=== PATIENT | male | born 1930 | race Caucasian/White ===

== ENCOUNTER 2017-12-27 14:54 | Inpatient (IN) ==
[2017-12-27] MEDS ORDERED: Acetaminophen 325 MG Tablet PO ONE (20:13)
[2017-12-27] MEDS ORDERED: Sodium Chlor 0.9% Inj 500 ML IV.SIG ONE (20:13)
--- NOTE | 2017-12-27 20:41 | ED ---
HPI General Chief complaint: [employer] Problem Stated complaint: Medical/GI Time Seen by Provider: 12/27/17 20:40 Source: patient History of Present Illness HPI narrative: The patient is an 87 year old male who presents to the [facility] emergency department with a history of swollen scotum that began 4-5 days. He has dysuria with urinary incontinence for the last 3 days. He has had a poor appetite and difficulty sleeping. He last moved his bowels 4-5 days ago. He has weakness of his lower extremities. His pmd: none. According to the patient's son at the bedside the patient does not believe and taking medications or following with a primary care physician. Patient is unsure whether he has had any fevers associated with this at home. He reports having chills. He denies having any significant cough or congestion. He reports having a strong odor to his urine and blood in his urine. On review of systems otherwise, the patient denies having any neck pain, chest pain, shortness of breath, vomiting, diarrhea, or neurologic symptoms. Related Data Allergies Allergy/AdvReac Type Severity Reaction Status Date / Time No Known Allergies Allergy Uncoded 02/18/15 16:30 Review of Systems Constitutional Denies fever(s) and Reports other (chills) Eyes Denies change in vision ENT Denies headache(s) and Denies nasal congestion Cardiovascular Denies chest pain Respiratory Denies dyspnea Gastrointestinal Denies abdominal pain Genitourinary Reports hematuria, Reports difficulty urinating, Reports dysuria, Reports flank pain, Reports nocturia, Reports scrotal swelling, Reports testicular pain, Reports urinary frequency, Reports urinary incontinence and Reports urinary urgency Musculoskeletal Denies myalgias Integumentary/Breasts Denies rash Neurologic Denies headache(s), Denies focal weakness and Reports weakness (generalized weakness) Psychiatric Denies depression Endocrine Denies polyuria Hematologic/Lymphatic Denies easy bruising PMFSH Medical History Medical History BPH (benign prostatic hyperplasia) (Acute) Surgical History Surgical History S/P TURP (Acute) Social History Social History Substance History: No History of Abuse Smoking Status: Never smoker How Often Do You Have a Drink Containing Alcohol: Never Recent Travel in [facility] within the Last 8 Weeks: No Recent Out of Country Travel within the Last 8 Weeks: No Immunization History Tetanus Immunization: Unsure Hx Influenza Vaccine This Season: No Exam HENVA Head: normocephalic and atraumatic Nose: no nasal discharge and no epistaxis Mouth: moist mucous membranes Eyes Sclera: normal sclerae Pupils: PERRL Neck Neck: trachea midline and no JVD Resp Effort & Inspection: no use of accessory muscles Auscultation: clear to auscultation bilaterally Cardio Rate: regular rate Rhythm: regular rhythm Heart Sounds: no murmurs GI Inspection: non-distended Palpation: soft, no hepatosplenomegaly and tender suprapubicly; not at McBurney' s point, Roger's sign negative and with no rebound tenderness Auscultation: normal bowel sounds Penis: normal penis Meatus: meatus normal and no meatla discharge Scrotum: edematous, erythematous and scrotal swelling Testes: testicular tenderness Back/Spine/Pelvis Back: CVA tenderness (bilaterally) Skin General: dry skin (warm) Neuro General: alert, awake and oriented x3 Cranial Nerves: CN's II-XI intact bilaterally Speech: speech normal Motor: no movement abnormalities noted Sensory Exam: no sensory deficits noted Extrem General: normal to inspection, no clubbing, no cyanosis and no edema Psych Mood: congruent mood Affect: normal affect Judgment: judgment good Course Hospital Course: During the course of the patient's emergency department visit, the patient's history, examination, and differential diagnosis were reviewed with the patient. The patient was placed on a manager social with oximetry and frequent blood pressure monitoring. The patient had IV access obtained and blood work sent for analysis. A sepsis workup was initiated. The patient reports having incontinence. The patient reports having hematuria. A Machado catheter will be placed to gravity for a urine sample and to assess for any urine retention as well as any need for irrigation. CT scan of the abdomen and pelvis has been ordered. An ultrasound of the patient's testicles has been ordered. The patient was initially provided normal saline at 500 mL bolus 1, broad- spectrum antibiotic coverage to include Zosyn and vancomycin. The patient was noted to have an elevated temperature at 100. The patient was given Tylenol 650 p.o. 1. Consultations Consultation #1: The patient's case including history, pertinent physical examination findings, and laboratory studies were discussed with Dr Hanson. It was agreed that the patient would be admitted to the hospitalist service. Time: 00:29 Initial Documented Vital Signs Temperature 100.0 F H 12/27/17 15:51 Pulse Rate 114 H 12/27/17 15:51 Respiratory Rate 20 12/27/17 15:51 Blood Pressure 177/90 H 12/27/17 15:51 Pulse Oximetry 97 12/27/17 15:51 Last Documented Vital Signs Temperature 100.0 F H 12/27/17 15:51 Pulse Rate 95 H 12/27/17 20:06 Respiratory Rate 0 L 12/28/17 00:07 Blood Pressure 160/95 H 12/27/17 20:06 Pulse Oximetry 98 12/27/17 20:06 Medical Decision Making MDM Narrative Medical decision making narrative: A workup ensued to evaluate for possible underlying sepsis related to a suspected urinary tract infection. Workup will also be done to evaluate for any underlying scrotal abscess, orchitis, or epididymitis as a complication of urinary tract infection. The patient's diagnostic evaluation is remarkable for a leukocytosis at 24.3 with a left shift at 83 neutrophilsPT 11, INR 1.1, PTT 27.6, hemoglobin is 16.3 , platelets are 285, chemistry is remarkable for a troponin I of 0.19 which I suspect is demand related due to his illness as he denies having any chest pain or shortness of breath, CPK 723. The patient was continued on normal saline IV fluid resuscitation, glucose 118, lipase 58, lactic acid elevated at 2.5, GFR 47 , creatinine 1.42, BUN 24. Urinalysis showed 30 protein moderate occult blood occasional bacteria. Chest x-ray shows displacement of the inferior aspect of the trachea towards the right, left mediastinal process needs to be considered. This could be further evaluated with a CT scan exam of the chest. Plaques are noted that appear to be pleural-based. A CT scan of the chest with contrast was ordered, however CT scan of the abdomen and pelvis with IV contrast had already been done , therefore this will be deferred until tomorrow as an inpatient. CT scan of the abdomen and pelvis shows a right complex hydrocele, calcified pleural plaques on the right side, mild hepatic steatosis, stable cystic change at the uncinate process, renal cyst, fat-containing left inguinal hernia. Ultrasound of the testicles reveals findings consistent with a right sided orchitis, multiple bilateral epidural middle epididymal cysts with a complex 7 mm cyst. Differential includes metastasis, versus leukemia, solid lesions do not typically appear to be abscesses, however after treatment with antibiotic and ultrasound is recommended to repeat to evaluate for improvement. Moderate to large right-sided and small left-sided hydroceles are noted. The patient will be admitted for Orchitis, Dehydration, elevated troponin. The patient's results were discussed with the patient, including the plan of care. I explained that further testing and/ or monitoring is indicated based on the patient's history, examination, and/ or laboratory findings. Therefore, I recommended admission for additional evaluation. The patient expressed understanding and was agreeable with this plan. The patient was admitted to the hospital in guarded condition and sent to a bed under the care of [facility] service. Differential Diagnosis Differential Diagnosis: Scrotal cellulitis, versus Evelyn's gangrene, versus epididymitis, versus orchitis, versus prostatitis Medical Records Medical records reviewed: Yes I reviewed the patient's medical records. Lab Data Lab results reviewed: Yes I reviewed the patient's lab results. Result diagrams: 12/27/17 20:35 12/27/17 20:35 Lab Results 12/27/17 12/27/17 12/27/17 Range/Units 20:35 20:35 20:35 WBC 24.3 H (4.0-11.0) th/mm3 RBC 5.20 (4.50-5.90) mil/mm3 Hgb 16.3 (13.0-17.0) gm/dL Hct 47.0 (39.0-51.0) % MCV 90.5 (80.0-100.0) fL MCH 31.4 (27.0-34.0) pg MCHC 34.7 (32.0-36.0) % RDW 13.6 (11.6-17.2) % Plt Count 285 (150-450) th/mm3 MPV 8.8 (7.0-11.0) fL Neut % (Auto) 83.0 H (16.0-70.0) % Lymph % (Auto) 8.4 L (9.0-44.0) % Stanley % (Auto) 8.4 H (0.0-8.0) % Eos % (Auto) 0.0 (0.0-4.0) % Baso % (Auto) 0.2 (0.0-2.0) % Neut # (Auto) 20.2 H (1.8-7.7) th/mm3 Lymph # (Auto) 2.1 (1.0-4.8) th/mm3 Stanley # (Auto) 2.0 H (0.0-0.9) th/mm3 Eos # (Auto) 0.0 (0.0-0.4) th/mm3 Baso # (Auto) 0.1 (0.0-0.2) th/mm3 WBC Differential . Differential Comment Auto diff final PT 11.0 (9.8-11.6) sec INR 1.1 Ratio APTT 27.6 (24.3-30.1) sec Sodium 137 (136-145) meq/L Potassium 4.0 (3.5-5.1) meq/L Chloride 101 (98-107) meq/L Carbon Dioxide 24.1 (21.0-32.0) meq/L Anion Gap 12 (5-15) meq/L BUN 24 H (7-18) mg/dL Creatinine 1.42 H (0.60-1.30) mg/dL Estimated GFR 47 L (>89) mL/min Random Glucose 118 H (74-106) mg/dL Lactic Acid (0.4-2.0) mmol/L Calcium 9.7 (8.5-10.1) mg/dL Magnesium 2.5 (1.5-2.5) mg/dL Total Bilirubin 2.2 H (0.2-1.0) mg/dL AST 36 (15-37) U/L ALT 17 (12-78) U/L Alkaline Phosphatase 64 (45-117) U/L Total Creatine Kinase 723 H (39-308) U/L CK-MB (CK-2) 2.2 (0.5-3.6) ng/mL CK-MB (CK-2) % 0.3 (0.0-4.0) % Troponin I 0.19 H (0.02-0.05) ng/mL Total Protein 9.1 H (6.4-8.2) g/dL Albumin 3.4 (3.4-5.0) g/dL Lipase 58 L (73-393) U/L Urine Color (Yellw/Straw) Urine Clarity (Clear) Urine pH (5.0-8.5) Ur Specific [place] (1.002-1.035) Urine Protein (Neg-Trace) mg/dL Urine Glucose (UA) (Negative) mg/dL Urine Ketones (Negative) mg/dL Urine Occult Blood (Negative) Urine Nitrate (Negative) Urine Bilirubin (Negative) Urine Urobilinogen (Less than 2) mg/dL Ur Leukocyte Esterase (Negative) Urine RBC (0-3) /hpf Urine WBC (0-5) /hpf Urine Bacteria (None) /hpf Micro UA Comment Urine Culture Comments 12/27/17 12/27/17 Range/Units 20:35 23:20 WBC (4.0-11.0) th/mm3 RBC (4.50-5.90) mil/mm3 Hgb (13.0-17.0) gm/dL Hct (39.0-51.0) % MCV (80.0-100.0) fL MCH (27.0-34.0) pg MCHC (32.0-36.0) % RDW (11.6-17.2) % Plt Count (150-450) th/mm3 MPV (7.0-11.0) fL Neut % (Auto) (16.0-70.0) % Lymph % (Auto) (9.0-44.0) % Stanley % (Auto) (0.0-8.0) % Eos % (Auto) (0.0-4.0) % Baso % (Auto) (0.0-2.0) % Neut # (Auto) (1.8-7.7) th/mm3 Lymph # (Auto) (1.0-4.8) th/mm3 Stanley # (Auto) (0.0-0.9) th/mm3 Eos # (Auto) (0.0-0.4) th/mm3 Baso # (Auto) (0.0-0.2) th/mm3 WBC Differential Differential Comment PT (9.8-11.6) sec INR Ratio APTT (24.3-30.1) sec Sodium (136-145) meq/L Potassium (3.5-5.1) meq/L Chloride (98-107) meq/L Carbon Dioxide (21.0-32.0) meq/L Anion Gap (5-15) meq/L BUN (7-18) mg/dL Creatinine (0.60-1.30) mg/dL Estimated GFR (>89) mL/min Random Glucose (74-106) mg/dL Lactic Acid 2.5 H (0.4-2.0) mmol/L Calcium (8.5-10.1) mg/dL Magnesium (1.5-2.5) mg/dL Total Bilirubin (0.2-1.0) mg/dL AST (15-37) U/L ALT (12-78) U/L Alkaline Phosphatase (45-117) U/L Total Creatine Kinase (39-308) U/L CK-MB (CK-2) (0.5-3.6) ng/mL CK-MB (CK-2) % (0.0-4.0) % Troponin I (0.02-0.05) ng/mL Total Protein (6.4-8.2) g/dL Albumin (3.4-5.0) g/dL Lipase (73-393) U/L Urine Color Yellow (Yellw/Straw) Urine Clarity Clear (Clear) Urine pH 6.0 (5.0-8.5) Ur Specific [place] 1.014 (1.002-1.035) Urine Protein 30 H (Neg-Trace) mg/dL Urine Glucose (UA) Negative (Negative) mg/dL Urine Ketones Negative (Negative) mg/dL Urine Occult Blood Moderate H (Negative) Urine Nitrate Negative (Negative) Urine Bilirubin Negative (Negative) Urine Urobilinogen 4 or greater (Less than 2) mg/dL Ur Leukocyte Esterase Negative (Negative) Urine RBC 1 (0-3) /hpf Urine WBC 2 (0-5) /hpf Urine Bacteria Occasional H (None) /hpf Micro UA Comment Culture not ind Urine Culture Comments Culture not ind Imaging Data Radiologist's impression: ITS Impressions Chest X-Ray 12/27/17 20:13 CONCLUSION: 1. Displacement of the inferior aspect of the trachea towards the right. A left mediastinal process needs to be considered. This could be further evaluated with CT examination of the chest. 2. Increased density at the right medial base in the infrahilar region likely representing some consolidation or atelectasis. Some of the increased density could be secondary to calcified pleural plaques. 3. Calcified pleural plaques seen at the right diaphragmatic surface. Abdomen/Pelvis CT 12/27/17 21:00 CONCLUSION: 1. Right complex hydrocele. 2. Calcified pleural plaques on the right side. 3. Mild hepatic steatosis. 4. Stable cystic change at the uncinate process. This is nonspecific. The lack of changes encouraging for less aggressive process. 5. Renal cysts. 6. Fat-containing left inguinal hernia. Scrotum Ultrasound 12/27/17 21:00 CONCLUSION: 1. Findings consistent with right-sided orchitis. 2. Multiple bilateral epididymal cysts with a complex 7 mm cyst. There is also a solid 1 cm mass in the epididymis. Although epidural masses are typically benign, differential considerations include metastasis and leukemia. Solid lesion does not have the typical appearance for an abscess although the complex 7 mm cystic lesion may uncommonly represent an abscess. Consider follow-up examination following appropriate course of antibiotic treatment for further evaluation of the epididymal lesions. 3. Moderate to large right-sided and small left-sided hydroceles. Discharge Plan Discharge Disposition Patient Disposition: 30 Still Patient Discharge Details Discharge Problem: Acute orchitis, Sepsis Physicians Team ED Provider: Cherry Arteaga Primary Care Provider: Primary Care Elton,Regina Discharge Interventions Interventions: Vital Signs Last Done: 12/27/17 20:06 Status ED Status: With Doctor
--- NOTE | 2017-12-27 20:51 | XR ---
EXAM DATE: 12/27/2017 8:29 PM EDT AGE/SEX: 87 years / Male INDICATIONS: Short of breath. CLINICAL DATA: This is the patient's initial encounter. Patient reports that signs and symptoms have been present for 1 day and indicates a pain score of 0/10. MEDICAL/SURGICAL HISTORY: None. None. COMPARISON: [facility], CT ABDOMEN AND PELVIS W/O CONTRAST, 04/15/2015. . FINDINGS: The heart size is upper limits of normal. Calcifications seen at the aortic arch. There is some mass effect on the left inferior aspect of the trachea displacing the trachea towards the right. There is increased density at the right infrahilar region. The left lung is grossly clear. There is increased density at the right diaphragmatic surface which may be from calcification. There is degenerative daron nge with spurring at the left glenohumeral joint. CONCLUSION: 1. Displacement of the inferior aspect of the trachea towards the right. A left mediastinal process needs to be considered. This could be further evaluated with CT examination of the chest. 2. Increased density at the right medial base in the infrahilar region likely representing some cons olidation or atelectasis. Some of the increased density could be secondary to calcified pleural plaqu es. 3. Calcified pleural plaques seen at the right diaphragmatic surface. Electronically signed by: Travis Verma MD 12/27/2017 8:50 PM EDT
[2017-12-27] MEDS ORDERED: Piperacil/Tazo 3.375 GM Premix 50 ML IV.SIG ONE (21:02)
[2017-12-27] MEDS ORDERED: Vancomycin Inj 1 GM/200 ML PIGGYBACK IV.SIG ONE (21:02)
[2017-12-27 21:18] LABS: Baso # (Auto) 0.1 th/mm3 (0.0-0.2); Baso % (Auto) 0.2 % (0.0-2.0); Hemoglobin 16.3 gm/dL (13.0-17.0); Lymph # (Auto) 2.1 th/mm3 (1.0-4.8); Lymph % (Auto) 8.4 % (9.0-44.0); Mean Corpuscular HGB Conc 34.7 % (32.0-36.0); Mean Corpuscular Hemoglobin 31.4 pg (27.0-34.0); Mean Corpuscular Volume 90.5 fL (80.0-100.0); Mean Platelet Volume 8.8 fL (7.0-11.0); Mono % (Auto) 8.4 % (0.0-8.0); Neut # (Auto) 20.2 th/mm3 (1.8-7.7); Platelet Count 285 th/mm3 (150-450); Red Cell Distribution Width 13.6 % (11.6-17.2); White Blood Count 24.3 th/mm3 (4.0-11.0)
[2017-12-27 21:25] LABS: Activated Partial Thrombo Time 27.6 sec (24.3-30.1); INR 1.1 Ratio
[2017-12-27 21:28] LABS: Alanine Aminotransferase 17 U/L (12-78); Albumin 3.4 g/dL (3.4-5.0); Anion Gap 12 meq/L (5-15); Aspartate Aminotransferase 36 U/L (15-37); Blood Urea Nitrogen 24 mg/dL (7-18); Calcium 9.7 mg/dL (8.5-10.1); Carbon Dioxide 24.1 meq/L (21.0-32.0); Chloride 101 meq/L (98-107); Glomerular Filtration Rate 47 mL/min (>89); Glucose,Random 118 mg/dL (74-106); Lipase 58 U/L (73-393); Magnesium 2.5 mg/dL (1.5-2.5); Sodium 137 meq/L (136-145)
[2017-12-27 21:32] LABS: Alkaline Phosphatase 64 U/L (45-117); Creatine Kinase 723 U/L (39-308); Total Protein 9.1 g/dL (6.4-8.2); Troponin I 0.19 ng/mL (0.02-0.05)
[2017-12-27 21:45] LABS: CKMB Percent 0.3 % (0.0-4.0); Creatine Kinase MB 2.2 ng/mL (0.5-3.6)
[2017-12-27] MEDS ORDERED: Vancomycin Inj 1,000 MG in Sodium Chlor 0.9% Inj 250 ML IV.SIG ONE (22:00)
[2017-12-27] MEDS ORDERED: Sod Chloride 0.9% Inj 1,000 ML IV.SIG ONE (22:20)
--- NOTE | 2017-12-27 22:48 | CT ---
EXAM DATE: 12/27/2017 10:21 PM EDT AGE/SEX: 87 years / Male INDICATIONS: Abdominal pain, hematuria and scrotal swelling. CLINICAL DATA: This is the patient's initial encounter. Patient reports that signs and symptoms have been present for 4 - 6 days and indicates a pain score of 7/10. MEDICAL/SURGICAL HISTORY: . BPH. . TURP. ORAL CONTRAST: No oral contrast ingested. RADIATION DOSE: 15.71 CTDI (mGy) COMPARISON: [facility], CT ABDOMEN AND PELVIS W/O CONTRAST, 04/15/2015. . TECHNIQUE: Multiple contiguous axial images were obtained through the abdomen and pelvis following b olus infusion of 70 ml Omnipaque 350 (iohexol) nonionic water-soluble contrast as a single exam dos e. No oral contrast ingested. Using automated exposure control and adjustment of the mA and/or kV ac cording to patient size, radiation dose was kept as low as reasonably achievable to obtain optimal di agnostic quality images. DICOM format image data is available electronically for review and comparis on. FINDINGS: Lower Lungs: Calcified pleural plaques are seen in the right. There is mild increased density at the bases likely related to mild consolidation or atelectasis. Liver: There is mild decreased attenuation to the liver without focal hepatic masses. Spleen: Homogeneous density without enlargement. Pancreas: There is cystic change at the uncinate process measuring up to 1.9 cm. This was present on the prior CT examination. The pancreas appears otherwise unremarkable. Kidneys: Bilateral renal cysts are seen measuring up to 2.5 cm. No hydronephrosis or renal stones ar e seen. Adrenal Glands: Unremarkable. Aorta: The aorta and proximal iliac vessels are grossly unremarkable without aneurysmal dilation. A therosclerotic calcifications are present. Bowel/Mesentery: No areas of bowel thickening are seen. The sigmoid colon appears elongated potentia lly narrowed this may be secondary to lack of distention. Mass is not seen. Bowel dilatation is not seen. Abdominal Wall: Intact. Retroperitoneum: No evidence of adenopathy in the retrocrural, para-aortic, or deep pelvic regions. Bladder: Contours are smooth. Reproductive Organs: There appears to be a complex right hydrocele. Inguinal: There is fat in the left inguinal region. This appearance is unchanged. Bony Structures: There is degenerative change in the lumbar spine. CONCLUSION: 1. Right complex hydrocele. 2. Calcified pleural plaques on the right side. 3. Mild hepatic steatosis. 4. Stable cystic change at the uncinate process. This is nonspecific. The lack of changes encouragin g for less aggressive process. 5. Renal cysts. 6. Fat-containing left inguinal hernia. Electronically signed by: Travis Verma MD 12/27/2017 10:47 PM EDT
--- NOTE | 2017-12-27 23:38 | US ---
EXAM DATE: 12/27/2017 11:28 PM EDT AGE/SEX: 87 years / Male INDICATIONS: Testicular swelling. CLINICAL DATA: This is the patient's initial encounter. Patient reports that signs and symptoms have been present for 1 week and indicates a pain score of 1/10. MEDICAL/SURGICAL HISTORY: . BPH. . Prostate surgery. COMPARISON: [facility], CT ABDOMEN & PELVIS W CONTRAST, 12/27/2017. . MEASUREMENTS: Right Testicle:__4.3 x 4.0 x 3.0 cm Left Testicle:__4.7 x 3.3 x 2.2 cm FINDINGS: RIGHT: Testicle: Increased vascularity with mild dilatation of the rete testes. Epididymis: Multiple epididymal cysts which primarily are simple in appearance. However, there is an isoechoic solid epididymal mass measuring 0.9 x 1.0 x 0.7 cm. There is also dominant complex cystic lesion measuring 7 mm. Hydrocele: Moderate-large hydrocele present. Varicocele: No evidence of varicocele. LEFT: Testicle: Homogeneous echotexture without intra or extratesticular mass. Blood flow is symmetric and within normal limits. Epididymis: Visualized cyst. Hydrocele: Small hydrocele present. Varicocele: No evidence of varicocele. Scrotum: Within normal limits. CONCLUSION: 1. Findings consistent with right-sided orchitis. 2. Multiple bilateral epididymal cysts with a complex 7 mm cyst. There is also a solid 1 cm mass in the epididymis. Although epidural masses are typically benign, differential considerations include me tastasis and leukemia. Solid lesion does not have the typical appearance for an abscess although the complex 7 mm cystic lesion may uncommonly represent an abscess. Consider follow-up examination follow ing appropriate course of antibiotic treatment for further evaluation of the epididymal lesions. 3. Moderate to large right-sided and small left-sided hydroceles. Electronically signed by: Migel Win MD 12/27/2017 11:36 PM EDT
[2017-12-27 23:49] LABS: Bacteria,Urine Occasional /hpf; Bilirubin,Urine Negative (Negative); Clarity,Urine Clear (Clear); Color,Urine Yellow (Yellw/Straw); Glucose,Urine (UA) Negative (Negative); Leukocyte Esterase,Urine Negative (Negative); Nitrite,Urine Negative (Negative); Specific Gravity,Urine 1.014 (1.002-1.035); Urobilinogen,Urine 4 or Greater mg/dL (Less than 2)
[2017-12-28] MEDS ORDERED: Acetaminophen 325 MG Tablet PO PRN (01:48)
[2017-12-28] MEDS ORDERED: Bisacodyl 10 MG Supp RECTAL PRN (01:48)
[2017-12-28] MEDS ORDERED: Temazepam 15 MG Capsule PO PRN ×2 (01:48→03:47)
--- NOTE | 2017-12-28 03:27 | P.HP ---
History of Present Illness Service: [facility] Primary Care Physician: No Primary Care Physician Chief Complaint: testicular swelling/pain History of Present Illness: 87-year-old male with past medical history significant for BPH, not followed by any primary care physician, presents the emergency department for the evaluation of testicular pain and swelling. The patient reports that the swelling began approximately 4-5 days ago. He has had dysuria with incontinence for the past 3 days. He denies any fevers/chills but does endorse anorexia and insomnia. The patient also endorses increasing weakness in his lower extremities. He denies chest pain or shortness of breath. No abdominal pain. No nausea/vomiting/diarrhea. No lateralizing signs/symptoms. Inpatient Certification: I certify that the inpatient services were ordered in accordance with Medicare regulations governing the order. This includes certification that hospital inpatient services are reasonable and necessary and in the case of services not specified as inpatient-only under 42 CFR 419.22(n), that they are appropriately provided as inpatient services in accordance to with the 2-midnight benchmark under 43 CFR 412.3(e) Review of Systems All other systems reviewed negative except as stated in HPI PMFSH - History History Provided By: Family Member - Medical History Medical History: Medical History (Last Reviewed 12/27/17 @ 21:09 by Cherry Arteaga MD) BPH (benign prostatic hyperplasia) - Surgical History Surgical History: Surgical History (Last Reviewed 12/27/17 @ 21:09 by Cherry Arteaga MD) S/P TURP - Tobacco History Smoking Status: Never smoker - Alcohol History How Often Do You Have a Drink Containing Alcohol: Never - Substance Use History Substance History: No History of Abuse - Travel History Recent Travel in the [place] Within the Last 8 Weeks: No Recent Travel Out of the Country Within the Last 8 Weeks: No - Immunization History Tetanus Immunization: Unsure Hx Influenza Vaccine This Season: No Medications and Allergies Active Medications: Active Medications Acetaminophen (Tylenol) 650 mg PO Q4H PRN PRN Reason: Temp > 100.4 Al Hydroxide/Mg Hydroxide (Milk Of Magnesia Liq) 30 ml PO Q12H PRN PRN Reason: Mild Constipation Bisacodyl (Dulcolax Supp) 10 mg RECTAL DAILY PRN PRN Reason: SEVERE CONSITIPATION Heparin Sodium (Porcine) (Heparin Inj) 5,000 units SQ Q8H JEAN Levofloxacin/Dextrose (Levaquin 750 Mg Premix Inj) 150 mls @ 100 mls/hr IV.SIG Q24H JEAN Lactulose (Lactulose Liq) 30 ml PO DAILY PRN PRN Reason: SEVERE CONSITIPATION Ondansetron HCl (Zofran Inj) 4 mg IV.PUSH Q6H PRN PRN Reason: NAUSEA OR VOMITING Senna/Docusate Sodium (Lisa-Colace) 1 tab PO BID JEAN Sennosides (Senokot) 17.2 mg PO Q12H PRN PRN Reason: Moderate Constipation Temazepam (Restoril) 15 mg PO HS PRN PRN Reason: INSOMNIA Allergies Allergy/AdvReac Type Severity Reaction Status Date / Time No Known Allergies Allergy Uncoded 02/18/15 16:30 Home Medications Medication Instructions Recorded Confirmed Type No Known Home Medications 12/28/17 12/28/17 History Exam Vital signs: Vital Signs 12/27/17 15:51 12/27/17 20:06 12/28/17 00:07 Temperature 100.0 F H Pulse Rate 114 H 95 H Respiratory Rate 20 18 0 L Blood Pressure 177/90 H 160/95 H Pulse Oximetry 97 98 12/28/17 00:36 Temperature Pulse Rate 74 Respiratory Rate 18 Blood Pressure 174/84 H Pulse Oximetry 98 Narrative: Gen.: No acute distress Head: Normocephalic. Atraumatic. EENT: Pupils equal round and reactive to light. Nose without drainage. Airway intact. Throat without injection. Cardiovascular: Regular rate and rhythm. No murmurs, rubs or gallops. Respiratory: Lungs clear to auscultation bilaterally. No wheezes or rhonchi. Abdomen: Soft, nontender, nondistended. No peritoneal signs. : Scrotum swollen with erythema, tender to palpation. Musculoskeletal: No gross deformities. No edema. Skin: No obvious rashes or erythema. Neuro: Sensory and motor grossly intact. Cranial nerves II through XII grossly intact. Psych: Appropriate mood and affect Results - Labs CBC & Chem 7: 12/27/17 20:35 12/27/17 20:35 Labs: Laboratory Results - last 24 hr 12/27/17 12/27/17 12/27/17 20:35 20:35 20:35 WBC 24.3 H RBC 5.20 Hgb 16.3 Hct 47.0 MCV 90.5 MCH 31.4 MCHC 34.7 RDW 13.6 Plt Count 285 MPV 8.8 Neut % (Auto) 83.0 H Lymph % (Auto) 8.4 L [place] % (Auto) 8.4 H Eos % (Auto) 0.0 Baso % (Auto) 0.2 Neut # (Auto) 20.2 H Lymph # (Auto) 2.1 [place] # (Auto) 2.0 H Eos # (Auto) 0.0 Baso # (Auto) 0.1 WBC Differential . Differential Comment Auto diff final PT 11.0 INR 1.1 APTT 27.6 Sodium 137 Potassium 4.0 Chloride 101 Carbon Dioxide 24.1 Anion Gap 12 BUN 24 H Creatinine 1.42 H Estimated GFR 47 L Random Glucose 118 H Lactic Acid Calcium 9.7 Magnesium 2.5 Total Bilirubin 2.2 H AST 36 ALT 17 Alkaline Phosphatase 64 Total Creatine Kinase 723 H CK-MB (CK-2) 2.2 CK-MB (CK-2) % 0.3 Troponin I 0.19 H Total Protein 9.1 H Albumin 3.4 Lipase 58 L Urine Color Urine Clarity Urine pH Ur Specific [place] Urine Protein Urine Glucose (UA) Urine Ketones Urine Occult Blood Urine Nitrate Urine Bilirubin Urine Urobilinogen Ur Leukocyte Esterase Urine RBC Urine WBC Urine Bacteria Micro UA Comment Urine Culture Comments 12/27/17 12/27/17 12/28/17 20:35 23:20 00:00 WBC RBC Hgb Hct MCV MCH MCHC RDW Plt Count MPV Neut % (Auto) Lymph % (Auto) [place] % (Auto) Eos % (Auto) Baso % (Auto) Neut # (Auto) Lymph # (Auto) [place] # (Auto) Eos # (Auto) Baso # (Auto) WBC Differential Differential Comment PT INR APTT Sodium Potassium Chloride Carbon Dioxide Anion Gap BUN Creatinine Estimated GFR Random Glucose Lactic Acid 2.5 H 1.1 Calcium Magnesium Total Bilirubin AST ALT Alkaline Phosphatase Total Creatine Kinase CK-MB (CK-2) CK-MB (CK-2) % Troponin I Total Protein Albumin Lipase Urine Color Yellow Urine Clarity Clear Urine pH 6.0 Ur Specific [place] 1.014 Urine Protein 30 H Urine Glucose (UA) Negative Urine Ketones Negative Urine Occult Blood Moderate H Urine Nitrate Negative Urine Bilirubin Negative Urine Urobilinogen 4 or greater Ur Leukocyte Esterase Negative Urine RBC 1 Urine WBC 2 Urine Bacteria Occasional H Micro UA Comment Culture not ind Urine Culture Comments Culture not ind - Imaging Impressions Chest X-Ray 12/27/17 20:13 CONCLUSION: 1. Displacement of the inferior aspect of the trachea towards the right. A left mediastinal process needs to be considered. This could be further evaluated with CT examination of the chest. 2. Increased density at the right medial base in the infrahilar region likely representing some consolidation or atelectasis. Some of the increased density could be secondary to calcified pleural plaques. 3. Calcified pleural plaques seen at the right diaphragmatic surface. Abdomen/Pelvis CT 12/27/17 21:00 CONCLUSION: 1. Right complex hydrocele. 2. Calcified pleural plaques on the right side. 3. Mild hepatic steatosis. 4. Stable cystic change at the uncinate process. This is nonspecific. The lack of changes encouraging for less aggressive process. 5. Renal cysts. 6. Fat-containing left inguinal hernia. Scrotum Ultrasound 12/27/17 21:00 CONCLUSION: 1. Findings consistent with right-sided orchitis. 2. Multiple bilateral epididymal cysts with a complex 7 mm cyst. There is also a solid 1 cm mass in the epididymis. Although epidural masses are typically benign, differential considerations include metastasis and leukemia. Solid lesion does not have the typical appearance for an abscess although the complex 7 mm cystic lesion may uncommonly represent an abscess. Consider follow-up examination following appropriate course of antibiotic treatment for further evaluation of the epididymal lesions. 3. Moderate to large right-sided and small left-sided hydroceles. Caprini VTE Risk Assessment Caprini VTE Risk Assessment: Moderate/High Risk (score >= 2) Caprini Risk Assessment Model: Point Value = 1 Point Value = 2 Point Value = 3 Point Value = 5 Age 41-60 Minor surgery BMI > 25 kg/m2 Swollen legs Varicose veins or History of unexplained or recurrent spontaneous Oral contraceptives or hormone replacement Sepsis (< 1 month) Serious lung disease, including pneumonia (< 1 month) Abnormal pulmonary function Acute myocardial infarction Congestive heart failure (< 1 month) History of inflammatory bowel disease Medical patient at bed rest Age 61-74 Arthroscopic surgery Major open surgery (> 45 min) Laparoscopic surgery (> 45 min) Malignancy Confined to bed (> 72 hours) Immobilizing plaster cast Central venous access Age >= 75 History of VTE Family history of VTE Factor V Leiden Prothrombin [id number] Lupus anticoagulant Anticardiolipin antibodies Elevated serum homocysteine Heparin-induced thrombocytopenia Other congenital or acquired thrombophilia Stroke (< 1 month) Elective arthroplasty Hip, pelvis, or leg fracture Acute spinal cord injury (< 1 month) Prophylaxis Regimen: Total Risk Factor Score Risk Level Prophylaxis Regimen 0-1 Low Early ambulation 2 Moderate Order ONE of the following: *Sequential Compression Device (SCD) *Heparin 5000 units SQ BID 3-4 Higher Order ONE of the following medications: *Heparin 5000 units SQ TID *Enoxaparin/Lovenox 40 mg SQ daily (WT < 150 kg, CrCl > 30 mL/min) *Enoxaparin/Lovenox 30 mg SQ daily (WT < 150 kg, CrCl > 10-29 mL/min) *Enoxaparin/Lovenox 30 mg SQ BID (WT < 150 kg, CrCl > 30 mL/min) AND/OR *Sequential Compression Device (SCD) 5 or more Highest Order ONE of the following medications: *Heparin 5000 units SQ TID (Preferred with Epidurals) *Enoxaparin/Lovenox 40 mg SQ daily (WT < 150 kg, CrCl > 30 mL/min) *Enoxaparin/Lovenox 30 mg SQ daily (WT < 150 kg, CrCl > 10-29 mL/min) *Enoxaparin/Lovenox 30 mg SQ BID (WT < 150 kg, CrCl > 30 mL/min) AND *Sequential Compression Device (SCD) Assessment and Plan - Plan Assessment/plan: 1. Right-sided orchitis/sepsis Patient with leukocytosis and elevated lactic acid Blood cultures pending Scrotal ultrasound significant for right-sided orchitis and multiple bilateral epididymitis cysts with a complex 7 mm cyst and a solid 1 cm mass. Recommended follow-up ultrasound for further evaluation of lesions following antibiotic course. Levaquin 2. Elevated troponin Initial troponin 0.19 Patient denies any chest pain or shortness of breath ACS rule out pending; serial troponins/EKGs 3. Acute kidney injury Creatinine 1.42, no baseline for comparison Likely chronic component Monitor renal function 4. BPH Patient does not take any home medications FEN Cardiac diet Electrolytes: Monitor and replete as needed NS at 100 cc/hour Heparin
[2017-12-28] MEDS: Sod Chloride 0.9% Inj 1,000 ML IV.CONT SCH ×2 (05:37→18:00)
[2017-12-28] MEDS: Heparin - SQ 10,000 UNITS/ML Vial SQ SCH ×3 (05:41→18:46)
[2017-12-28 08:06] LABS: Troponin I 0.18 ng/mL (0.02-0.05)
[2017-12-28 08:18] LABS: CKMB Percent 0.6 % (0.0-4.0); Creatine Kinase MB 2.7 ng/mL (0.5-3.6)
[2017-12-28] MEDS: Senna/Docusate Sodium 8.6/50 MG Tablet PO SCH ×2 (09:58→20:14)
--- NOTE | 2017-12-28 17:26 | ECG ---
Date Performed: 12/28/2017 Time Performed: 00:45:02 PTAGE: 87 years EKG: Sinus rhythm WITH FIRST DEGREE AV BLOCK INCOMPLETE RIGHT BUNDLE BRANCH BLOCK SEPTAL MYOCARDIAL INFARCTION INFERIO R MYOCARDIAL INFARCTION ABNORMAL ECG PREVIOUS TRACING : 03/26/1998 15.52 Since the previous tracing, no significant change noted DOCTOR: Alexsander Melvin Interpretating Date/Time 12/28/2017 17:26:04
--- NOTE | 2017-12-28 21:10 | ECG ---
Date Performed: 12/28/2017 Time Performed: 19:48:04 PTAGE: 87 years EKG: Baseline artifact present Sinus rhythm LOW QRS VOLTAGE IN PRECORDIAL LEADS INCOMPLETE RIGHT BUNDLE BRANCH BLOCK SEPTAL MYOCARDIAL INFARCTIO N , PROBABLY OLD INFERIOR MYOCARDIAL INFARCTION , PROBABLY OLD ABNORMAL ECG No significant change fro m prior electrocardiogram. PREVIOUS TRACING : 12/28/2017 00.45 DOCTOR: Juan Suero Interpretating Date/Time 12/28/2017 21:09:49
[2017-12-28 22:28] LABS: Troponin I 0.14 ng/mL (0.02-0.05)
[2017-12-28 22:40] LABS: CKMB Percent 0.8 % (0.0-4.0); Creatine Kinase MB 2.4 ng/mL (0.5-3.6)
[2017-12-29] MEDS: Sod Chloride 0.9% Inj 1,000 ML IV.CONT SCH ×3 (01:27→20:11)
[2017-12-29] MEDS: Heparin - SQ 10,000 UNITS/ML Vial SQ SCH ×3 (01:27→17:34)
--- NOTE | 2017-12-29 08:37 | P.PN ---
Subjective Interval history: F/u orchitis. Denies scrotal pain. He has chronic foot pain. Speech difficult interpreted by [id number]. Denies symptoms discharge and history of STD Physical Exam Vital signs: Vital Signs 12/28/17 09:06 12/28/17 16:00 12/28/17 20:00 Temperature 98.3 F 98.1 F Pulse Rate 70 84 83 Respiratory Rate 22 18 18 Blood Pressure 189/85 H 178/81 H 160/73 H Pulse Oximetry 92 L 93 L 12/29/17 00:00 12/29/17 04:00 Temperature 100.1 F H 100.5 F H Pulse Rate 84 88 Respiratory Rate 18 18 Blood Pressure 156/80 H 180/79 H Pulse Oximetry 93 L 92 L Intake & Output 12/28/17 12/29/17 12/29/17 18:59 06:59 18:59 Intake Total 1720 / 1720 Output Total 1650 / 1650 1000 / 1000 Balance 70 / 70 -1000 / -1000 Intake: IV 1000 / 1000 NS Inj 1,000 ML @ 100 mls/hr IV 1000 / 1000 .CONT .Q10H JEAN Rx#:[id number] Oral 720 / 720 Output: Urine 1650 / 1650 Urine Amount (Catheter) 1000 / 1000 Indwelling Urethral Catheter 1000 / 1000 Other: # Voids 1 Date of Last Bowel Movement 12/28/18 # Bowel Movements 1 Narrative: Gen.: No acute distress Cardiovascular: Regular rate and rhythm. No murmurs, rubs or gallops. Respiratory: Lungs clear to auscultation bilaterally. No wheezes or rhonchi. Abdomen: Soft, nontender, nondistended. No peritoneal signs. : Scrotum swollen with erythema, tender to palpation. Musculoskeletal: No gross deformities. No edema. Skin: No obvious rashes or erythema. - Urinary Catheter Management Indwelling Urethral Catheter Cath placed during this visit: yes Reason for continuing: Hourly intake/output Insertion date: 12/27/17 Insertion time: 23:31 Results - Labs CBC & Chem 7: 12/29/17 06:50 12/29/17 06:50 Laboratory Results - last 24 hr 12/28/17 21:25 Total Creatine Kinase 311 H CK-MB (CK-2) 2.4 CK-MB (CK-2) % 0.8 Troponin I 0.14 H Microbiology 12/27/17 20:30 Blood - Peripheral Aerobic Blood Culture - Preliminary No growth in 1 day 12/27/17 20:30 Blood - Peripheral Anaerobic Blood Culture - Preliminary No growth in 1 day 12/27/17 20:35 Blood - Peripheral Aerobic Blood Culture - Preliminary No growth in 1 day 12/27/17 20:35 Blood - Peripheral Anaerobic Blood Culture - Preliminary No growth in 1 day Assessment and Plan - Assessment (1) Sepsis Code(s): A41.9 - Sepsis, unspecified organism Status: Acute (2) Acute orchitis Code(s): N45.2 - Orchitis Status: Acute - Plan 1. Right-sided orchitis/severe sepsis Patient with leukocytosis and elevated lactic acid Blood cultures pending Scrotal ultrasound significant for right-sided orchitis and multiple bilateral epididymitis cysts with a complex 7 mm cyst and a solid 1 cm mass. Recommended follow-up ultrasound for further evaluation of lesions following antibiotic course. Levaquin Consider consult 2. Elevated troponin Downward trend. EKG with poor R wave Patient denies any chest pain or shortness of breath Start asa and BB. Will need stress test 3. Acute kidney injury Creatinine 1.42, no baseline for comparison Likely chronic component Monitor renal function 4. BPH Patient does not take any home medications Dc singh 5. Tracheal displacement. Follow-up pending chest CT FEN Cardiac diet Electrolytes: Monitor and replete as needed NS at 100 cc/hour Heparin (1) Sepsis Qualifiers: Sepsis type: sepsis due to unspecified organism Qualified Code(s): A41.9 - Sepsis, unspecified organism
[2017-12-29 09:27] LABS: Baso % (Auto) 0.2 % (0.0-2.0); Eos # (Auto) 0.1 th/mm3 (0.0-0.4); Eos % (Auto) 0.9 % (0.0-4.0); Hematocrit 38.6 % (39.0-51.0); Hemoglobin 12.9 gm/dL (13.0-17.0); Lymph # (Auto) 1.7 th/mm3 (1.0-4.8); Lymph % (Auto) 12.2 % (9.0-44.0); Mean Corpuscular HGB Conc 33.4 % (32.0-36.0); Mean Corpuscular Hemoglobin 30.4 pg (27.0-34.0); Mean Corpuscular Volume 90.9 fL (80.0-100.0); Mean Platelet Volume 8.8 fL (7.0-11.0); Mono # (Auto) 1.4 th/mm3 (0.0-0.9); Mono % (Auto) 9.9 % (0.0-8.0); Neut # (Auto) 10.7 th/mm3 (1.8-7.7); Neut % (Auto) 76.8 % (16.0-70.0); Platelet Count 252 th/mm3 (150-450); Red Blood Count 4.24 mil/mm3 (4.50-5.90); Red Cell Distribution Width 13.4 % (11.6-17.2); White Blood Count 13.9 th/mm3 (4.0-11.0)
[2017-12-29] MEDS: Senna/Docusate Sodium 8.6/50 MG Tablet PO SCH ×2 (09:45→20:10)
[2017-12-29 09:57] LABS: Calcium 8.5 mg/dL (8.5-10.1); Carbon Dioxide 21.3 meq/L (21.0-32.0); Potassium 3.6 meq/L (3.5-5.1)
--- NOTE | 2017-12-29 16:27 | CT ---
EXAM DATE: 12/29/2017 3:07 PM EDT AGE/SEX: 87 years / Male INDICATIONS: Possible chest mass. CLINICAL DATA: This is the patient's initial encounter. Patient reports that signs and symptoms have been present for 1 day and indicates a pain score of 0/10. MEDICAL/SURGICAL HISTORY: None. None. RADIATION DOSE: 16.29 CTDI (mGy) COMPARISON: C, CHEST 1V SINGLE AP, 12/27/2017. . TECHNIQUE: Multiple contiguous axial images were obtained through the chest during bolus infusion of 48 ml Visipaque 320 (iodixanol) nonionic water-soluble contrast as a single exam dose. Images wer e obtained in suspended respiration using multiple row detector helical technique. Using automated e xposure control and adjustment of the mA and/or kV according to patient size, radiation dose was kept as low as reasonably achievable to obtain optimal diagnostic quality images. DICOM format image hemant a is available electronically for review and comparison. 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 There are centrilobular emphysematous changes in both upper lobes. No pleural effusions are identified. Examination of the mediastinum demonstrates no abnormally enlarged lymph nodes by CT criteria. No axi llary or hilar abnormalities are identified. Coronary artery calcifications are present. The adrenal glands are unremarkable. CONCLUSION: Findings characteristic of asbestosis. No evidence of acute thoracic abnormality. No masses are ident ified. Electronically signed by: Juaquin Aj MD 12/29/2017 4:26 PM EDT
[2017-12-29] MEDS: Aspirin 325 MG Tablet PO SCH (17:34)
[2017-12-29] MEDS: Metoprolol Tartrate 25 MG Tablet PO SCH (20:08)
[2017-12-30] MEDS: Heparin - SQ 10,000 UNITS/ML Vial SQ SCH ×3 (03:18→17:33)
[2017-12-30] MEDS: Sod Chloride 0.9% Inj 1,000 ML IV.CONT SCH (06:21)
[2017-12-30 08:23] LABS: Baso # (Auto) 0.1 th/mm3 (0.0-0.2); Baso % (Auto) 0.5 % (0.0-2.0); Eos # (Auto) 0.2 th/mm3 (0.0-0.4); Eos % (Auto) 1.8 % (0.0-4.0); Hematocrit 40.9 % (39.0-51.0); Hemoglobin 13.8 gm/dL (13.0-17.0); Lymph # (Auto) 1.9 th/mm3 (1.0-4.8); Lymph % (Auto) 14.7 % (9.0-44.0); Mean Corpuscular HGB Conc 33.7 % (32.0-36.0); Mean Corpuscular Hemoglobin 30.7 pg (27.0-34.0); Mean Corpuscular Volume 91.2 fL (80.0-100.0); Mean Platelet Volume 8.7 fL (7.0-11.0); Mono # (Auto) 1.3 th/mm3 (0.0-0.9); Mono % (Auto) 10.2 % (0.0-8.0); Neut # (Auto) 9.3 th/mm3 (1.8-7.7); Neut % (Auto) 72.8 % (16.0-70.0); Platelet Count 311 th/mm3 (150-450); Red Blood Count 4.48 mil/mm3 (4.50-5.90); Red Cell Distribution Width 13.6 % (11.6-17.2); White Blood Count 12.8 th/mm3 (4.0-11.0)
[2017-12-30] MEDS: Metoprolol Tartrate 25 MG Tablet PO SCH ×3 (09:50→20:08)
[2017-12-30] MEDS: Senna/Docusate Sodium 8.6/50 MG Tablet PO SCH ×2 (09:51→20:07)
[2017-12-30] MEDS: Aspirin 325 MG Tablet PO SCH (10:04)
[2017-12-30 12:06] LABS: Calcium 8.9 mg/dL (8.5-10.1); Carbon Dioxide 23.2 meq/L (21.0-32.0); Magnesium 2.4 mg/dL (1.5-2.5); Potassium 3.5 meq/L (3.5-5.1)
--- NOTE | 2017-12-30 14:56 | P.PN ---
Subjective Interval history: Follow-up orchitis and hypertension. Denies scrotal pain. BP still elevated denies chest pain, shortness of breath and dizziness. Patient told he needs stress test outpatient. Results of chest CT also discussed with patient denies working in [employer] or docks. 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 I am awaiting family's arrival so I could discuss plan of care. I am not certain if patient understands whats going on with him. Physical Exam Vital signs: Vital Signs 12/29/17 16:00 12/29/17 20:00 12/30/17 00:00 Temperature 98.1 F 97.9 F 98 F Pulse Rate 76 78 81 Respiratory Rate 19 20 20 Blood Pressure 164/73 H 172/75 H 182/83 H Pulse Oximetry 94 L 93 L 92 L 12/30/17 04:00 12/30/17 08:00 12/30/17 12:00 Temperature 98.6 F 97.6 F 98.1 F Pulse Rate 83 76 64 Respiratory Rate 20 17 18 Blood Pressure 197/83 H 187/85 H 191/81 H Pulse Oximetry 94 L 94 L 95 Intake & Output 12/29/17 12/30/17 12/30/17 18:59 06:59 18:59 Intake Total 2110 / 2110 1240 / 1240 1949 / 1949 Output Total 1982 Balance 127 / 127 1240 / 1240 1949 / 1949 Intake: IV 1150 / 1150 1000 / 1000 1949 / 1950 NS Inj 1,000 ML @ 100 mls/hr IV 1000 / 1000 1000 / 1000 .CONT .Q10H JEAN Rx#:[id number] Levaquin 750 mg Premix Inj 150 150 / 150 150 / 150 ML @ 100 mls/hr IV.SIG Q24H JEAN Rx#:[id number] Oral 960 / 960 240 / 240 Output: Urine 658 / 658 Urine Amount (Catheter) 1325 / 1325 Indwelling Urethral Catheter 1325 / 1325 Other: # Voids 3 5 # Urine Diapers 2 Date of Last Bowel Movement 12/29/17 # Bowel Movements 1 Narrative: Gen.: No acute distress Cardiovascular: Regular rate and rhythm. No murmurs, rubs or gallops. Respiratory: Lungs clear to auscultation bilaterally. No wheezes or rhonchi. Abdomen: Soft, nontender, nondistended. No peritoneal signs. : Scrotum with improving swelling and erythema, slightly tender in the right inguinal Musculoskeletal: No gross deformities. No edema. Skin: No obvious rashes or erythema. - Urinary Catheter Management Indwelling Urethral Catheter Cath placed during this visit: yes, but has since been removed by the nurse Reason for continuing: Not indwelling catheter Insertion date: 12/27/17 Insertion time: 23:31 Removal date: 12/29/17 Removal time: 09:48 Results - Labs CBC & Chem 7: 12/30/17 05:51 12/30/17 11:30 Laboratory Results - last 24 hr 12/30/17 12/30/17 05:51 11:30 WBC 12.8 H RBC 4.48 L Hgb 13.8 Hct 40.9 MCV 91.2 MCH 30.7 MCHC 33.7 RDW 13.6 Plt Count 311 MPV 8.7 Neut % (Auto) 72.8 H Lymph % (Auto) 14.7 [place] % (Auto) 10.2 H Eos % (Auto) 1.8 Baso % (Auto) 0.5 Neut # (Auto) 9.3 H Lymph # (Auto) 1.9 [place] # (Auto) 1.3 H Eos # (Auto) 0.2 Baso # (Auto) 0.1 WBC Differential . Differential Comment Auto diff final Sodium 141 Potassium 3.5 Chloride 107 Carbon Dioxide 23.2 Anion Gap 11 BUN 13 Creatinine 0.97 Estimated GFR 73 L Random Glucose 124 H Calcium 8.9 Magnesium 2.4 Microbiology 12/27/17 20:30 Blood - Peripheral Aerobic Blood Culture - Preliminary No growth in 3 days 12/27/17 20:30 Blood - Peripheral Anaerobic Blood Culture - Preliminary No growth in 3 days 12/27/17 20:35 Blood - Peripheral Aerobic Blood Culture - Preliminary No growth in 3 days 12/27/17 20:35 Blood - Peripheral Anaerobic Blood Culture - Preliminary No growth in 3 days - Imaging Impressions Chest CT 12/29/17 21:30 CONCLUSION: Findings characteristic of asbestosis. No evidence of acute thoracic abnormality. No masses are identified. - Procedures none Assessment and Plan - Assessment (1) Sepsis Code(s): A41.9 - Sepsis, unspecified organism Status: Acute (2) Acute orchitis Code(s): N45.2 - Orchitis Status: Acute - Plan 1. Right-sided orchitis/severe sepsis. Stable Patient with leukocytosis and elevated lactic acid Blood cultures pending NGTD Scrotal ultrasound significant for right-sided orchitis and multiple bilateral epididymitis cysts with a complex 7 mm cyst and a solid 1 cm mass. Recommended follow-up ultrasound for further evaluation of lesions following antibiotic course. Levaquin Consider consult 2. Elevated troponin likely from DRAKE Downward trend. EKG with poor R wave Patient denies any chest pain or shortness of breath Ct asa and BB. Will need stress test o/p 3. Acute kidney injury. Improving Creatinine 1.42, no baseline for comparison Likely chronic component Monitor renal function 4. 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 No sxs. O/p f/ u Pulmonary 6. HTN. BB already maxed out now with bradycardia add Norvasc FEN Cardiac diet Electrolytes: Monitor and replete as needed Dc NS at 100 cc/hour Heparin Discharge Planning: Home (1) Sepsis Qualifiers: Sepsis type: sepsis due to unspecified organism Qualified Code(s): A41.9 - Sepsis, unspecified organism
--- NOTE | 2017-12-30 14:58 | P.DCO ---
- Physical Therapy Order: Evaluate and treat, Improve ambulation, Strength and gait training - Home Health Nursing Order: Medical education, Medication education-adverse effect, Nursing assessment with vital signs - Certification I have seen patient Ryan Capellan on 12/30/17. My clinical findings support the need for the requested home health care services because: Deconditioned with increased weakness I certify that my clinical findings support that this patient is homebound because: Need for psychosocial assistance
[2017-12-30] MEDS ORDERED: amLODIPine 5 MG Tablet PO SCH (15:00)
[2017-12-31] MEDS: Heparin - SQ 10,000 UNITS/ML Vial SQ SCH ×2 (04:29→09:50)
[2017-12-31] MEDS: Aspirin 325 MG Tablet PO SCH (09:00)
[2017-12-31] MEDS ORDERED: amLODIPine 10 MG Tablet PO SCH (09:00)
[2017-12-31] MEDS: Metoprolol Tartrate 25 MG Tablet PO SCH (09:00)
[2017-12-31] MEDS: Senna/Docusate Sodium 8.6/50 MG Tablet PO SCH (09:00)
--- NOTE | 2017-12-31 16:47 | P.DS ---
Date of admission: 12/28/17 03:52 Primary care physician: No Primary Care Physician Brief History from admission: 87-year-old male with past medical history significant for BPH, not followed by any primary care physician, presents the emergency department for the evaluation of testicular pain and swelling. The patient reports that the swelling began approximately 4-5 days ago. He has had dysuria with incontinence for the past 3 days. He denies any fevers/chills but does endorse anorexia and insomnia. The patient also endorses increasing weakness in his lower extremities. He denies chest pain or shortness of breath. No abdominal pain. No nausea/vomiting/diarrhea. No lateralizing signs/symptoms. DS: Diagnosis - Discharge Diagnosis (1) Sepsis Status: Acute (2) Acute orchitis Status: Acute DS: Medications - Discharge Medications Prescriptions: aspirin [Aspir-81] 162 mg PO DAILY #60 tab levofloxacin [Levaquin] 500 mg PO DAILY #7 tab metoprolol tartrate 25 mg PO BID #60 tab DS: Summary Hospital Course: 1. Right-sided orchitis/severe sepsis. Stable Patient with leukocytosis and elevated lactic acid Blood cultures pending NGTD Scrotal ultrasound significant for right-sided orchitis and multiple bilateral epididymitis cysts with a complex 7 mm cyst and a solid 1 cm mass. Recommended follow-up ultrasound for further evaluation of lesions following antibiotic course. Levaquin consult o/p 2. Elevated troponin likely from DRAKE Downward trend. EKG with poor R wave Patient denies any chest pain or shortness of breath Ct asa and BB. Will need stress test o/p 3. Acute kidney injury. Improving Creatinine 1.42, no baseline for comparison Likely chronic component Monitor renal function 4. 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 No sxs. O/p f/ u Pulmonary 6. HTN. BB already maxed out now with bradycardia increase Norvasc to 10 mg QD FEN Cardiac diet Electrolytes: Monitor and replete as needed Dc NS at 100 cc/hour Heparin Dw daughter Jaclyn - Time Spent with Patient Total time spent providing and/or coordinating discharge services: - Quality: VTE Deep Vein Thrombosis/Pulmonary Embolism Present on Admission: No Exam Vital signs: Vital Signs 12/30/17 20:00 12/31/17 00:00 12/31/17 04:00 Temperature 98.2 F 98 F 98.4 F Pulse Rate 74 73 60 Respiratory Rate 18 18 18 Blood Pressure 156/73 H 187/84 H 188/86 H Pulse Oximetry 94 L 93 L 94 L 12/31/17 08:00 12/31/17 12:00 Temperature 97.4 F L 97.3 F L Pulse Rate 68 71 Respiratory Rate 19 18 Blood Pressure 194/86 H 159/68 H Pulse Oximetry 93 L 94 L Intake & Output 12/30/17 12/31/17 12/31/17 18:59 06:59 18:59 Intake Total 1949 240 / 240 Output Total 5 / 5 Balance 1944 240 / 240 Intake: IV 1949 Levaquin 750 mg Premix Inj 150 150 / 150 ML @ 100 mls/hr IV.SIG Q24H JEAN Rx#:[id number] Oral 240 / 240 Output: Urine 5 / 5 Other: # Voids 2 # Urine Diapers 3 # Bowel Movements 1 Narrative: Gen.: No acute distress Cardiovascular: Regular rate and rhythm. No murmurs, rubs or gallops. Respiratory: Lungs clear to auscultation bilaterally. No wheezes or rhonchi. Abdomen: Soft, nontender, nondistended. No peritoneal signs. : Scrotum with improving swelling and erythema, slightly tender in the right inguinal Musculoskeletal: No gross deformities. No edema. Skin: No obvious rashes or erythema. Results Procedures completed during hospitalization: none Labs on day of discharge: Preliminary micro results at discharge 12/27/17 20:30 Aerobic Blood Culture - Preliminary Blood - Peripheral No growth in 4 days Anaerobic Blood Culture - Preliminary No growth in 4 days 12/27/17 20:35 Aerobic Blood Culture - Preliminary Blood - Peripheral No growth in 4 days Anaerobic Blood Culture - Preliminary No growth in 4 days - Impressions ITS Impressions Chest X-Ray 12/27/17 20:13 CONCLUSION: 1. Displacement of the inferior aspect of the trachea towards the right. A left mediastinal process needs to be considered. This could be further evaluated with CT examination of the chest. 2. Increased density at the right medial base in the infrahilar region likely representing some consolidation or atelectasis. Some of the increased density could be secondary to calcified pleural plaques. 3. Calcified pleural plaques seen at the right diaphragmatic surface. Abdomen/Pelvis CT 12/27/17 21:00 CONCLUSION: 1. Right complex hydrocele. 2. Calcified pleural plaques on the right side. 3. Mild hepatic steatosis. 4. Stable cystic change at the uncinate process. This is nonspecific. The lack of changes encouraging for less aggressive process. 5. Renal cysts. 6. Fat-containing left inguinal hernia. Scrotum Ultrasound 12/27/17 21:00 CONCLUSION: 1. Findings consistent with right-sided orchitis. 2. Multiple bilateral epididymal cysts with a complex 7 mm cyst. There is also a solid 1 cm mass in the epididymis. Although epidural masses are typically benign, differential considerations include metastasis and leukemia. Solid lesion does not have the typical appearance for an abscess although the complex 7 mm cystic lesion may uncommonly represent an abscess. Consider follow-up examination following appropriate course of antibiotic treatment for further evaluation of the epididymal lesions. 3. Moderate to large right-sided and small left-sided hydroceles. Chest CT 12/29/17 21:30 CONCLUSION: Findings characteristic of asbestosis. No evidence of acute thoracic abnormality. No masses are identified. Discharge Plan - Discharge Disposition Patient Disposition: /Home Health Service - Discharge Condition Condition: Stable - Discharge Order Discharge Orders: Discharge Order (Routine); Ordered 12/31/17 Ordered By: Yang Farias - Physicians Team Primary Care Provider: Primary Care Elton,Regina Attending Provider: Yang Farias
== END 2017-12-31 17:55 | disposition home health service (06) ==
LOC: NEPE 14:54 → NEDA 12-28 00:31 → INTOOBSV 12-28 01:48 → NEDA 12-28 14:04 → N07 12-28 14:30
PROVIDERS: ADMIT Internal Medicine; ATTEND Internal Medicine